=== PATIENT | male | born 1970 | race Caucasian/White ===

== ENCOUNTER 2024-02-26 16:11 | Observation (INO) | payer OTHER, SELFPAY ==
[2024-02-26] VITALS (21 sets, daily range): BP systolic 105–186; BP diastolic 61–124; BMI 24.6; BMI 24.4
[2024-02-26 13:39] LABS: % Basophils 0.7 % (0-2); % Eosinophils 1.6 % (0-6); % Immature Granulocytes 0.5 % (0-0.5); % Lymphocytes 6.5 % (20.5-51.1); % Monocytes 5.4 % (1.7-9.3); % Neutrophils 85.3 % (42.2-75.2); Absolute Basophils 0.1 10^3/uL (0-0.2); Absolute Eosinophils 0.3 10^3/uL (0-0.7); Absolute Immature Granulocytes 0.1 10^3/uL (0-0.05); Absolute Lymphocytes 1.2 10^3/uL (1.2-3.4); Absolute Neutrophils 15.6 10^3/uL (1.4-6.5); Hematocrit 48.9 % (39.0-52.0); Hemoglobin 16.4 g/dL (13.0-18.0); Mean Corp Hgb Conc. 33.5 g/dL (33.0-37.0); Mean Corpuscular Hgb 30.5 pg (27.0-31.0); Mean Corpuscular Volume 91.1 fL (80.0-94.0); Mean Platelet Volume 10.7 fL (7.4-10.4); Nucleated Red Blood Cells % 0 % (-); Platelet Count 296 10^3/uL (130-400); Red Blood Cell Count 5.37 10^6/uL (4.70-6.10); White Blood Cell Count 18.3 10^3/uL (4.8-10.8)
[2024-02-26] MEDS: MORPHINE SULFATE 4 MG IV (13:39)
[2024-02-26] MEDS: ZOFRAN 4 MG IV ×2 (13:54→17:21)
[2024-02-26 14:04] LABS: ALT (SGPT) 31 U/L (0-50); AST (SGOT) 32 U/L (17-59); Alkaline Phosphatase 121 U/L (38-126); Blood Urea Nitrogen 21 mg/dl (9-20); Calcium 10.3 mg/dl (8.4-10.2); Carbon Dioxide 26 mmol/L (22-30); Chloride 99 mmol/L (98-107); Estimated Creatinine Clearance 93 ml/min; Glucose 116 mg/dl (70-99); Potassium 4.8 mmol/L (3.5-5.1); Sodium 139 mmol/L (135-145); Total Bilirubin 1.3 mg/dl (0.2-1.3); Total Protein 8.1 g/dl (6.3-8.2); eGFR > 60.00
[2024-02-26 14:16] LABS: Troponin I < 0.012 ng/ml
[2024-02-26 14:19] LABS: Lipase 86 U/L (23-300)
[2024-02-26] MEDS: DILAUDID 0.5 MG IV (14:23)
--- NOTE | 2024-02-26 14:31 | ED.GENMED ---
History of Present Illness
General
Chief Complaint: Cardiac Symptoms
Source: patient and spouse
Exam Limitations: none
Time Seen by Provider: 02/26/24 13:20
Travel History
Have you had any contact with someone who has COVID-19?: No
Do you have any symptoms of coronavirus? Fever > 100 degrees, chills, cough, shortness of breath, sore throat, loss of taste or smell, muscle aches, or headache?: No
History of Present Illness
History of Present Illness:
53-year-old male in normal state of health till about 10 AM. Developed sudden onset of nausea vomiting. This was followed by left upper anterior chest pain around noon time which has been persistent. No radiation to the back. No shearing pain.
Associated with nausea and vomiting. Patient states this pain feels exactly like his previous DC type pain. Has a stent placed last year.
Past History
Past History
ED Past Medical History: CAD
ED Past Surgical History: Cardiac (Cardiac stent) and Orthopedic
Social History
Tobacco: Non-smoker
Alcohol: None
Drug: None
Personal:
Living: with family
Employment: Employed
Review of Systems
Review of Systems
All Other Systems: Not applicable
Constitutional: Denies fever
Respiratory: Reports no symptoms
ABD/GI: Denies abdominal pain
Phy Exam
Physical Exam
Physical Exam:
GENERAL: Alert. Very uncomfortable appearing. Slightly pale. Mildly diaphoretic at times. Clutching his left upper anterior chest at times. Mildly agitated
EYE: Orbits normal.
NECK: Supple
CARDIAC: Regular rate and rhythm without any obvious murmurs.
LUNGS: Clear breath sounds,normal
ABDOMEN: Soft, without focal tenderness or distention
NEUROLOGICAL: Alert and oriented , grossly non-focal
SKIN: Warm. Relatively dry but slight diaphoresis at times
MUSCULOSKELETAL: No edema,no deformity.Good color
PSYCH: Normal and appropriate interaction.
Course
Orders/Labs/Results
Orders:
Orders
02/26/24 13:13
ECG [Electrocardiogram (*1)] Urgent
Reason for Study: Chest Pain
EKG- Treatment ONCE
02/26/24 13:26
IV Insert/Care/Rem.- Treatment PRN
Pulse Ox/cont/shift [RESP] Stat
Quantity: 1
02/26/24 13:27
Cardiac Monitoring- Treatment ONCE
CR Chest Portable - 1 View Urgent
Comment:
Reason For Exam: cp
Reason Study Needs to be Portable: Unable to Transport
02/26/24 13:30
Complete Blood Count/With Diff Urgent
Comprehensive Metabolic Panel Urgent
Lipase Urgent
Troponin I Urgent
02/26/24 13:33
Morphine Sulfate 4 mg .ROUTE .STK-MED ONE
02/26/24 13:35
Morphine Sulfate 4 mg IV NOW STA
02/26/24 13:50
CT Chest/abd/pelvis Angio W/wo Urgent
Comment:
Reason For Exam: sudden severe chest pain
02/26/24 13:51
Ondansetron Injectable [Zofran] 4 mg .ROUTE .STK-MED ONE
02/26/24 13:54
Ondansetron Injectable [Zofran] 4 mg IV NOW STA
02/26/24 13:59
HYDROmorphone [Dilaudid] 0.5 mg .ROUTE .STK-MED ONE
02/26/24 14:00
HYDROmorphone [Dilaudid] 0.5 mg IV NOW STA
Abnormal Lab Results
02/26/24
13:30
WBC 18.3 H 10^3/uL
(4.8-10.8)
MPV 10.7 H fL
(7.4-10.4)
Abs Immat Gran (auto) 0.1 H 10^3/uL
(0-0.05)
Absolute Neuts (auto) 15.6 H 10^3/uL
(1.4-6.5)
Absolute Monos (auto) 1.0 H 10^3/uL
(0.1-0.6)
Neutrophils % 85.3 H %
(42.2-75.2)
Lymphocytes % 6.5 L %
(20.5-51.1)
BUN 21 H mg/dl
(9-20)
Glucose 116 H mg/dl
(70-99)
Calcium 10.3 H mg/dl
(8.4-10.2)
02/26/24 13:30
02/26/24 13:30
Vital Signs
Initial and Last Documented VS:
Initial Vital Signs
Temp Pulse Resp BP Pulse Ox
98.3 F 68 20 139/108 100
02/26/24 13:18 02/26/24 13:18 02/26/24 13:18 02/26/24 13:18 02/26/24 13:18
Last Documented Vital Signs
Temp Pulse Resp BP Pulse Ox
98.3 F 77 24 158/72 97
02/26/24 13:18 02/26/24 14:20 02/26/24 14:20 02/26/24 14:20 02/26/24 14:28
*Radiology
Radiology exam reviewed: preliminary read by ED provider (Negative x-ray) and radiology read reviewed (Negative CT angiography and x-ray)
*Pulse Oximetry
Patient hypoxic: no
*EKG
Interpretation: abnormal
Comparison EKG: changes noted
Heart Rate: 77
Rate: normal
Rhythm: sinus and PVC's
Marshall: normal axis
Interval: normal interval
QRS Pattern: normal QRS
Ischemia: non-specific ST changes
*Floral Associate Interpretation
Rate: normal
Interpretation: normal
Heart Rate: 50
Rhythm: sinus
*Critical Care Note
Total Time (30-74mins, 75-104mins- exclusive of procedures): 45
Update Note
Update Note:
Patient rechecked multiple times. Partial relief with narcotic pain management. Cardiology was called immediately for their input and evaluation. Repeat EKG in the ER was stable. Initial troponin negative. We did elect to do CT angiography with
the severity of symptoms. This was negative.
1450... Patient appears much improved at this time. Pain minimal. Family updated. Will admit for rule out and further observation and care
ED Attending Note
-
Portions of this chart may have been created with voice recognition software.� Occasional wrong word or��sound alike� substitutions may have occurred due to the inherent limitations of voice recognition software.
Discharge Plan
Departure
Patient Disposition: Admit
Date of Disposition: 02/26/24
Time of Disposition: 14:48
Presentation/result/management discussed w/ accepting MD/DO: cardiology
Discharge Problem:
Severe anterior chest pain, History of cardiac stent, Leukocytosis
Prescriptions:
No Action
temazepam 15 mg Capsule
15 mg PO HSPRN PRN (Reason: insomnia)
duloxetine 60 mg Capsule,Delayed Release(Dr/Ec)
60 mg PO DAILY
atorvastatin 40 mg Tablet
40 mg PO QPM Qty: 90 0RF
aspirin 81 mg Tablet,Chewable
81 mg PO DAILY Qty: 1 0RF
acetaminophen 325 mg Tablet
650 mg PO Q4HPRN PRN (Reason: mild pain) Qty: 1 0RF
Jardiance 10 mg tablet
10 mg PO DAILY Qty: 30 3RF
clopidogrel [Plavix] 75 mg Tablet
75 mg PO DAILY
lisinopril 5 mg tablet
10 mg PO DAILY
metoprolol succinate 25 mg tablet extended release 24 hr
12.5 mg PO DAILY
Referrals:
Juan Jose Pacheco, [Family Provider] -
Interventions
Interventions:
*Risk Screen - Suicide Last Done: 02/26/24 13:49
*General Assessment Last Done: 02/26/24 13:48
*Neglect/Abuse Screening Last Done: 02/26/24 13:49
*ED COVID-19 Vaccine History Last Done: 02/26/24 13:48
ED- Pulmonary Assessment Last Done: 02/26/24 14:28
ED- Cardiac Assessment Last Done: 02/26/24 13:49
Discharge Date and Time
Print Language: MONTENEGRIN
--- NOTE | 2024-02-26 15:04 | HPS.HSE ---
Family Physician
-
Family Physician: Juan Jose Pacheco
Chief Complaint
-
Chest Pain
History of Present Illness
Patient is a 53 y/o male with a past medical history of coronary artery disease, ST elevation myocardial infarction, ischemic cardiomyopathy, now resolved, hyperlipidemia, and anxiety who presents for diaphoresis, nausea, vomiting, and left-sided
chest pain since this morning. He states that he woke up around 7am and went to work as normal this morning. While driving home from work around 10am, he stopped to tow picker a sandwich and began to feel nauseous and diaphoretic. When he got home at
10:30am, he ate the whole sandwich and then began vomiting. He began experiencing a pressure in a crescent shape around his left nipple around noon while seated that he rates an 8/10. He states that this is the same presentation and type of pain
that he felt about 1 year ago when he had an ST elevation myocardial infarction. After arriving in the emergency department, he was given Dilaudid and his pain decreased to a 1-2/10. He is not in distress at this time. He denies shortness of breath,
dyspnea on exertion, and abdominal pain.
Medical History
Past Medical History
Past Medical History: Reports Other
Additional Past Medical History:
Coronary Artery Stent s/p Stent
Ischemic Cardiomyopathy - Resolved
Essential Hypertension
Dyslipidemia
Anxiety/Depression/Insomnia
Past Surgical History: Reports Other
Additional Past Surgical History:
Right Total Knee Replacement
Social History
Tobacco: Non-smoker
Alcohol: None
Family History
Family History: Not pertinent
Allergies / Home Medications
Allergies reflects when Allergies were last updated in [employer].
Home Medications with original date entered in [employer]
Allergy/Medication List:
Allergies
Allergy/AdvReac Type Severity Reaction Status Date / Time
No Known Allergies Allergy Unverified 02/26/24 13:17
Home Medications
duloxetine 60 mg capsule,delayed release 60 mg PO DAILY Mental Health/Anxiety 03/23/23
temazepam 15 mg capsule 15 mg PO HSPRN PRN insomnia 03/23/23
acetaminophen 325 mg tablet 650 mg (2 x 325 mg) PO Q4HPRN PRN mild pain #1 tab 03/26/23
aspirin 81 mg chewable tablet 81 mg PO DAILY #1 tab 03/26/23
atorvastatin 40 mg tablet 40 mg PO QPM #90 tabs 03/26/23
empagliflozin 10 mg tablet (Jardiance) 10 mg PO DAILY #30 tabs 03/26/23
clopidogrel 75 mg tablet (Plavix) 75 mg PO DAILY 02/26/24
lisinopril 5 mg tablet 10 mg PO DAILY 02/26/24
metoprolol succinate 25 mg tablet,extended release 24 hr 12.5 mg PO DAILY 02/26/24
Review of Systems
-
A 12 point ROS was completed and negative except as noted: Yes
Constitutional: Denies Fever or Chills
Respiratory: Denies Cough or Trouble Breathing
Cardiac: Denies Chest Pain or Palpitations
Abdomen/GI: Reports Nausea and Vomiting; Denies Abdominal Pain
Physical Exam
Vital Signs
Vital Signs
Temp Pulse Resp BP Pulse Ox
98.3 F 77 24 158/72 97
02/26/24 13:18 02/26/24 14:20 02/26/24 14:20 02/26/24 14:20 02/26/24 14:28
Physical Exam
General: Comfortable and Conversant
HEENT: Anicteric, Moist mucous membranes and Oxygen (Nasal Cannula)
Respiratory: Clear and Non Labored Respirations
Cardiac: S1/S2 and Regular Rhythm; No Murmur
GI: Soft, Non Tender and Non Distended
Rectal: Deferred by Provider
Musculoskeletal: No Clubbing, No Cyanosis and No Edema
Skin: Warm and Dry
Neuro: Awake, Alert and Oriented
Psych: Calm
Laboratory Results
-
02/26/24 13:30
02/26/24 13:30
Laboratory Results
Total Bilirubin 1.3 mg/dl (0.2-1.3) 02/26/24 13:30
AST 32 U/L (17-59) 02/26/24 13:30
ALT 31 U/L (0-50) 02/26/24 13:30
Alkaline Phosphatase 121 U/L (38-126) 02/26/24 13:30
Troponin I < 0.012 ng/ml 02/26/24 13:30
Lipase 86 U/L (23-300) 02/26/24 13:30
Data Reviewed
-
CT Scan: Report Reviewed by me
Lab Data: Labs Reviewed by me
Old Records: Reviewed
Impression/Plan
-
Chest Pain
-Appreciate Cardiology Consult
-Continue to trend troponin and serial ECGs
-Give dose of Maalox and start Pepcid tonight
Leukocytosis, unclear etiology, possibly reactive
-Continue to trend
Coronary Artery Stent s/p Stent
-Continue aspirin and Plavix
Ischemic Cardiomyopathy - Resolved
-Echo Aug 2023: EF 55-60% with improvement in previous wall motion abnormalities
-Continue Jardiance
Essential Hypertension
-Continue lisinopril and metoprolol
Dyslipidemia
-Continue atorvastatin
Anxiety/Depression/Insomnia
-Continue temazepam prn
DVT proph: SCDs
Code Status: Full Code
--- NOTE | 2024-02-26 15:15 | W.PN.UPDATE ---
Update Note
Progress Note Update
This update note serves as an addendum to H&P written by KWAME Sanchez
saw and examined the patient.
The FIRE FIGHTER's note was reviewed and I agree with the note.
Comment:
Mr. Edvin Silver is a 53 yo man with hx CAD (s/p PCI LAD 04/02, ICM with improved EF (TTE 09/02 with EF 55-60% with complete resolution prior WMA), presents to the ER with chest pain and nausea. Symptoms remind patient of prior [place] (03/2023).
EKG: sinus rhythm with frequent PVC's otherwise normal
Triage VS: T 98.3, P 68, RR 20, BP 139/108, SpO2 100%
LABS: WBC 18.3, Hg 16.4, PLT 296, Na 139, K+ 4.8, BUN 21, Cr 1.0, Glucose 116, T. Bili 1.3, AST 32, ALT 31, Alk Phos 121, Trop < 0.012, lipase 86
CXR
IMPRESSION:
1. Clear lungs.
2. No significant change compared to prior study.
CTA CHEST/ABDOMEN/PELVIS
IMPRESSION:
1. No evidence of aortic dissection, aortic aneurysm, or central pulmonary embolism.
2. Clear lungs.
3. Stent within the LAD, new compared to prior CT dated 03/23/2023.
4. No acute abnormality identified within the abdomen or pelvis.
MAR: dilaudid, morphine, zofran
Patient took his asa/plavix this morning. Differential includes ACS versus gastritis. CTA without e/o dissection, aneurysm or PE. Initial Troponin negative.
s/p dilaudid with improvement in pain
-admit patient to telemetry
-appreciate cardiology
-TTE now
-trend Troponins
-maalox PO x 1 now to see if helps symptoms
-continue [employer] asa/plavix/statin
-continue [employer] metop, Lisinopril, Jardiance
-start pepcid qhs
Anxiety
-PRODUCTION [employer] SCHEDULER Duloxetine
[2024-02-26] MEDS: MAALOX 30 ML PO (15:59)
[2024-02-26] MEDS: LIPITOR 40 MG PO (18:10)
[2024-02-26 18:43] LABS: Troponin I < 0.012 ng/ml
[2024-02-26] MEDS: PEPCID 20 MG PO (20:59)
[2024-02-27 00:44] LABS: Troponin I 0.013 ng/ml
[2024-02-27 03:28] VITALS: BP 114/62
[2024-02-27 06:00] VITALS: BMI 24.0
[2024-02-27 07:30] VITALS: BP 116/60
[2024-02-27 07:35] LABS: Hematocrit 45.9 % (39.0-52.0); Hemoglobin 15.1 g/dL (13.0-18.0); Mean Corp Hgb Conc. 32.9 g/dL (33.0-37.0); Mean Corpuscular Hgb 30.6 pg (27.0-31.0); Mean Corpuscular Volume 93.1 fL (80.0-94.0); Mean Platelet Volume 11.1 fL (7.4-10.4); Platelet Count 242 10^3/uL (130-400); Red Blood Cell Count 4.93 10^6/uL (4.70-6.10); White Blood Cell Count 13.5 10^3/uL (4.8-10.8)
[2024-02-27 07:49] LABS: Blood Urea Nitrogen 20 mg/dl (9-20); Calcium 9.7 mg/dl (8.4-10.2); Carbon Dioxide 26 mmol/L (22-30); Chloride 99 mmol/L (98-107); Estimated Creatinine Clearance 93 ml/min; Glucose 92 mg/dl (70-99); HDL Cholesterol 60 mg/dl; LDL Cholesterol, Calculated 32 mg/dl; Magnesium 2.2 mg/dl (1.6-2.3); Potassium 4.5 mmol/L (3.5-5.1); Sodium 135 mmol/L (135-145); Total Cholesterol 108 mg/dl (50-199); Triglyceride 84 mg/dl (10-149); Very Low Density Lipoprotein 16 mg/dl (0-30); eGFR > 60.00
--- NOTE | 2024-02-27 08:07 | W.PN.CD ---
Today's Communication / Plan
-
will stop plavix
call us back if needed
Impression / Plan
-
Chest/epigastric pain:
- now 11/20 in severity
- Troponins negative, ecg nonischemic- this is not myocardial ischemia. Telem SR with PVCs
- ECHO normal
- Will stop plavix now (11 of 12 month course has been completed)
- Continue ASA 81mg daily forever
Leukocytosis
- with left shift
- no radiolucent gallstones and no LFT abnormalities
IM to decide if further evaluation needed or perhaps a short course of outpt antibiotics
Will sign off . Call back prn
Physical Exam
Vital Signs/Labs
Vital Signs
Temp Pulse Resp BP Pulse Ox
98.1 F 56 18 114/62 97
02/27/24 03:28 02/27/24 03:28 02/27/24 03:28 02/27/24 03:28 02/27/24 03:28
02/26/24 02/27/24 02/28/24
06:59 06:59 06:59
Actual Weight 172 lb 5 oz
02/27/24 06:49
02/27/24 06:49
Magnesium 2.2 mg/dl (1.6-2.3) 02/27/24 06:49
Triglycerides 84 mg/dl (10-149) 02/27/24 06:49
LDL Cholesterol, Calc 32 mg/dl 02/27/24 06:49
VLDL Cholesterol, Calc 16 mg/dl (0-30) 02/27/24 06:49
HDL Cholesterol 60 mg/dl 02/27/24 06:49
LAB Results
02/26/24 02/26/24 02/27/24
13:30 17:47 00:00
Troponin I < 0.012 < 0.012 0.013
Physical Exam
Constitutional: No acute distress and Comfortable
Cardiovascular: Rhythm & rate is regular, S1S2 is normal and Murmur/rub/gallop absent
Respiratory: Respiratory effort normal, Lungs clear to auscul., Wheeze Absent and Crackles Absent
GI: Soft, Distention absent, Flat and Non tender
Neuro/Psych: AO x 3 and Motor deficits absent
Data Reviewed
-
Date of Service: February 27, 2024
[2024-02-27 08:37] LABS: Glycohemoglobin (HgbA1c) 5.9 % (4.0-5.6)
[2024-02-27] MEDS: TOPROL XL 12.5 MG PO (09:10)
[2024-02-27] MEDS: ZESTRIL 10 MG PO (09:11)
[2024-02-27] MEDS: LOW STRENGTH ASPIRIN 81 MG PO (09:11)
[2024-02-27] MEDS: CYMBALTA DELAYED RELEASE 60 MG PO (09:11)
[2024-02-27] MEDS: JARDIANCE 10 MG PO (09:11)
--- NOTE | 2024-02-27 11:45 | W.PN.HOSP.TC ---
Today's Communication/Plan
-
OK for DC today
Assessment / Plan
Assessment / Plan
Mr. Edvin Silver is a 53 yo man with hx CAD (s/p PCI LAD 04/02, ICM with improved EF (TTE 09/02 with EF 55-60% with complete resolution prior WMA), presents to the ER with chest pain and nausea. Symptoms remind patient of prior [place] (03/2023).
CXR
IMPRESSION:
1. Clear lungs.
2. No significant change compared to prior study.
CTA CHEST/ABDOMEN/PELVIS
IMPRESSION:
1. No evidence of aortic dissection, aortic aneurysm, or central pulmonary embolism.
2. Clear lungs.
3. Stent within the LAD, new compared to prior CT dated 03/23/2023.
4. No acute abnormality identified within the abdomen or pelvis.
Chest pain
-TTE without WML; Troponin negative x 3; EKG without ischemic changes
-appreciate cardiology - this is not ACS
-sx attributable to gastritis - patient reports eating left over clams prior to onset
-educated can take maalox/tums PRN at home and follow up closely with PCP
CAD
-continue [employer] asa/statin; ok to stop plavix per cardiology
-continue [employer] metop, Lisinopril, Jardiance
Anxiety
-[employer] Duloxetine
Anticipated Discharge: Today
Subjective/Interval History
-
Date of Service: February 27, 2024
feeling well
wants to go home
feels sx more likely indigestion - ate left over clams from night prior before sx set in
Objective Data
-
Labs:
Laboratory Results
02/27/24
06:49
WBC 13.5 H
Hgb 15.1
Hct 45.9
Plt Count 242
Sodium 135
Potassium 4.5
Chloride 99
Carbon Dioxide 26
BUN 20
Creatinine 1.0
Glucose 92
Calcium 9.7
Vital Signs:
Vital Signs
Temp Pulse Resp BP Pulse Ox
98.1 F 60 24 116/60 97
02/27/24 07:30 02/27/24 09:10 02/27/24 07:30 02/27/24 07:30 02/27/24 07:30
Review of Systems
-
History Source: Patient
All other systems: Reviewed and negative
Physical Exam
-
General: No Apparent Distress
HEENT: Normocephalic, Atraumatic and Moist Mucous Membranes
Respiratory: Clear to Auscultation
Cardiac: Regular Rhythm and S1/S2; Negative Murmur, Rub or Gallop
GI: Soft, Nontender, Nondistended and Normal Bowel Sounds; Negative Organomegaly
Rectal: Deferred by Provider
Musculoskeletal: No Clubbing, No Cyanosis and No Edema
Skin: Negative Rash
Neuro: Nonfocal/Grossly Intact
Data Reviewed
-
Diagnostic Radiology: Report Reviewed by me
Labs: Labs Reviewed by me
--- NOTE | 2024-02-27 11:54 | W.DS.TRANS ---
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
-
Discharge Instructions:
Discharge Diagnosis/Procedures chest pain likely secondary to gastritis/
indigestion
Diet Low Cholesterol
Activity As tolerated
Driving Restrictions As prior to admission
Bathing Restrictions None
Instructions:
Stand-Alone Forms:
Changes to Home Medications: Yes
Discharge Medications:
DC Medications w/original date entered in [employer]
duloxetine 60 mg capsule,delayed release 60 mg PO DAILY Mental Health/Anxiety 03/23/23
temazepam 15 mg capsule 15 mg PO HSPRN PRN insomnia 03/23/23
acetaminophen 325 mg tablet 650 mg (2 x 325 mg) PO Q4HPRN PRN mild pain #1 tab 03/26/23
aspirin 81 mg chewable tablet 81 mg PO DAILY #1 tab 03/26/23
empagliflozin 10 mg tablet (Jardiance) 10 mg PO DAILY #30 tabs 03/26/23
atorvastatin 40 mg tablet 40 mg PO DAILY 02/26/24
lisinopril 5 mg tablet 10 mg PO DAILY 02/26/24
metoprolol succinate 25 mg tablet,extended release 24 hr 12.5 mg PO DAILY 02/26/24
Home Medication Changes
Ok to stop Plavix
Pending Results: No
[2024-02-27 11:57] VITALS: BP 132/80
--- NOTE | 2024-02-27 12:50 | CM ---
Met with patient and his at bedside; initial assessment completed
Pharmacy verified: [facility], [facility]
Patient lives with his spouse in multilevel home; 0 steps to enter; 10 steps between floors; railings present on stairs; powder room on the 1st floor; 2nd floor bath has walk-in shower with seat
PLOF: reported he is independent with ambulation, stairs, and ADLs; drives
DME: none
SNF/Rehab/Home Health utilization history: none
Transportation: will provide ride home
Plan: discharge to home today without services
--- NOTE | 2024-02-27 14:55 | W.DCSUMMARY ---
Discharge Summary
Discharge Data
Date of Admission: 02/26/24
Date of Discharge: 02/27/24
-
Pending Results: No
Hospital Course
Discharging Physician : Dr. Birgit Maravilla
Disposition : Home
Primary care physician : Dr. Juan Jose Pacheco
Principal Discharge diagnosis : Chest pain secondary to gastritis/indigestion
Hospital Course :
Mr. Edvin Silver is a 53 yo man with hx CAD (s/p PCI LAD 04/02, ICM with improved EF (TTE 09/02 with EF 55-60% with complete resolution prior WMA), presents to the ER with chest pain and nausea. Symptoms remind patient of prior [place] (03/2023) and so
he came to the ER. Triage vitals stable. Labs with WBC 18.3, Cr 1.0, Trop < 0.012. EKG with sinus rhythm and PVC's. He was admitted to medicine with cardiology consulting. TTE performed without finding of change from prior 09/02. Troponins
trended overnight and were negative. He was given maalox with some improvement in symptoms. Etiology likely gastritis/indigestion from earlier meal which consisted of left over clams. He is told to take maalox or Tums PRN at home and follow up
with PCP with daily treatment/work-up if persists.
Leukocytosis improved to 13 day of discharge without initiation of antibiotics.
Time spent on discharge was 31 minutes.
Important imaging findings :
CXR
IMPRESSION:
1. Clear lungs.
2. No significant change compared to prior study.
CTA CHEST/ABDOMEN/PELVIS
IMPRESSION:
1. No evidence of aortic dissection, aortic aneurysm, or central pulmonary embolism.
2. Clear lungs.
3. Stent within the LAD, new compared to prior CT dated 03/23/2023.
4. No acute abnormality identified within the abdomen or pelvis.
TTE 02/26/24
CONCLUSIONS
Normal left ventricular size, wall thickness and systolic function. LV ejection
fraction is 55-60%.
No regional wall motion abnormalities are seen.
No significant valvular disease.
No significant change since the prior study of Aug 2023.
Procedure findings :
Discharge Plan
-
Patient Disposition: Home (Routine Discharge)
Discharge Diagnosis/Procedures: chest pain likely secondary to gastritis/indigestion
Diet: Low Cholesterol
Activity: As tolerated
Driving Restrictions: As prior to admission
Bathing Restrictions: None
Instructions: Chest Pain
Referrals:
Juan Jose Pacheco, DO [Family Provider] - in less than 1 week
Additional Discharge Medication Instructions: OK to stop Plavix
Take Maalox or Tums for indigestion as needed over the next couple of days. If indigestion persists discuss with your PCP about starting a daily medication.
Prescriptions:
Continued
temazepam 15 mg Capsule
15 mg PO HSPRN PRN (Reason: insomnia)
duloxetine 60 mg Capsule,Delayed Release(Dr/Ec)
60 mg PO DAILY
aspirin 81 mg Tablet,Chewable
81 mg PO DAILY Qty: 1 0RF
acetaminophen 325 mg Tablet
650 mg PO Q4HPRN PRN (Reason: mild pain) Qty: 1 0RF
Jardiance 10 mg tablet
10 mg PO DAILY Qty: 30 3RF
lisinopril 5 mg tablet
10 mg PO DAILY
metoprolol succinate 25 mg tablet extended release 24 hr
12.5 mg PO DAILY
atorvastatin 40 mg Tablet
40 mg PO DAILY
Discontinued
clopidogrel [Plavix] 75 mg Tablet
75 mg PO DAILY
Discharge Orders:
Discharge Patient (As Directed); Ordered 02/27/24
Ordered By: Birgit Maravilla
Discharge Date and Time
Discharge Date/Time: 02/27/24 14:37
Print Language: SINHALA
== END 2024-02-27 14:37 | disposition home or self-care (01) ==
LOC: 4 WEST ACU 16:11
PROVIDERS: Physician Assistant Medical; ADMITTING PHYSICIAN Student in an Organized Health Care Education/Training Program; CONSULT PHYSICIAN Internal Medicine Cardiovascular Disease; EMERGENCY PHYSICIAN Emergency Medicine; FAMILY PHYSICIAN Family Medicine
DX: R07.89 Other chest pain (principal); R11.2 Nausea with vomiting, unspecified; I25.10 Atherosclerotic heart disease of native coronary artery without angina pectoris; D72.829 Elevated white blood cell count, unspecified; I10 Essential (primary) hypertension; E78.5 Hyperlipidemia, unspecified; F41.9 Anxiety disorder, unspecified; I25.5 Ischemic cardiomyopathy; F32.A Depression, unspecified; G47.00 Insomnia, unspecified; I25.2 Old myocardial infarction; Z79.82 Long term (current) use of aspirin; Z79.84 Long term (current) use of oral hypoglycemic drugs; Z79.02 Long term (current) use of antithrombotics/antiplatelets; Z95.5 Presence of coronary angioplasty implant and graft; Z96.651 Presence of right artificial knee joint
CPT/HCPCS: 71045; 71275; 74174; 80048; 80053; 80061; 83036; 83690; 83735; 84484; 85025; 85027; 93005; 93306; 96374; 96375; 99291; G0378; Q9967

== ENCOUNTER 2025-03-18 11:35 | Emergency (ER) | payer OTHER, SELFPAY ==
[2025-03-18] VITALS (12 sets, daily range): BP systolic 137–184; BP diastolic 66–129
[2025-03-18] MEDS: DILAUDID 1 MG IV (11:55)
[2025-03-18] MEDS: ZOFRAN 4 MG IV (11:55)
[2025-03-18] MEDS: NSS 1000 IV (11:56)
--- NOTE | 2025-03-18 11:57 | ED.GENMED ---
History of Present Illness
<Kimberley Camacho PA-C - Last Filed: 03/18/25 17:31>
General
Chief Complaint: Chest Pain
Source: patient, records and family
Exam Limitations: none
Time Seen by Provider: 03/18/25 11:42
History of Present Illness
History of Present Illness:
54yoM with a history of coronary artery disease s/p PCI presenting for evaluation of chest pain. Patient was fasting for blood work this morning. He started to vomit around 8am and has been vomiting continuously since then. He then developed
sharp central chest pain about 45 minutes prior to arrival. Pain is severe and is non-radiating. He reports having similar symptoms when he had his heart attack in the past. He is writhing around in pain and diaphoretic in triage and brought
immediately to an exam room for evaluation. Chart reviewed and patient had a similar presentation in January 2024 which was attributed to gastritis/indigestion. He smokes marijuana daily. Of note, patient stopped taking his statin about 6 months.
His city treasurer is Dr. Correa.
Past History
<Kimberley Camacho PA-C - Last Filed: 03/18/25 17:31>
Past History
ED Past Medical History: CAD
ED Past Surgical History: Cardiac (Cardiac stent) and Orthopedic
Social History
Tobacco: Non-smoker
Alcohol: None
Drug: None
Personal:
Living: with family
Employment: Employed
Phy Exam
<Kimberley Camacho PA-C - Last Filed: 03/18/25 17:31>
Physical Exam
Physical Exam:
Writhing around on stretcher, screaming, agitated
General Physical Exam
General Presentation: moderate distress
General Skin: warm and diaphoretic
General Mental: anxious
ENT Exam
ENT Exam: normocephalic
Cardiovascular Exam
Cardiovascular Exam: regular rate/rhythm, no edema, no murmur and normal peripheral pulses (2+ DP pulses bilaterally)
Pulmonary Exam
Pulmonary Exam: lungs clear, no respiratory distress, no rales, no crackles, no rhonchi and no wheezing
Neurological Exam
Neurological Exam: alert
[place] Coma Scale
Eye Opening: Spontaneous
Verbal Response: Oriented
Motor Response: Obeys Commands
GCS Total Score: 15
Skin Exam
Skin Exam: normal color and diaphoresis
Psychiatric Exam
Psychiatric Exam: anxious
<Boo Mcmahan MD - Last Filed: 03/18/25 14:09>
[place] Coma Scale
GCS Total Score: 15
Scores
<Kimberley Camacho PA-C - Last Filed: 03/18/25 17:31>
Heart Score for Chest Pain Patients
STEMI patient?: No
History: Moderately Suspicious
ECG: Normal
Age: >45 - <65 years
Risk Factors: >/= 3 Risk Factors or History of CAD
Troponin: </= Normal Limit
Heart Score for Chest Pain Patients: 4
Heart Score Risk: 20.3% MACE over next 6 weeks
Course
<Kimberley Camacho PA-C - Last Filed: 03/18/25 17:31>
Orders/Labs/Results
Orders:
Orders
03/18/25 11:36
EKG [Electrocardiogram (*1)] Urgent
Reason for Study: Chest Pain
EKG- Treatment ONCE
03/18/25 11:46
CT Chest/abd/pelvis Angio W/wo Urgent
Comment:
Reason For Exam: Severe chest pain, vomiting
Cardiac Monitoring- Treatment ONCE
Morphine Sulfate 4 mg IV NOW STA
Ondansetron Injectable [Zofran] 4 mg IV NOW STA
CXR Port [CR Chest Portable - 1 View] Stat
Comment:
Reason For Exam: CP
Reason Study Needs to be Portable: Patient Unstable
03/18/25 11:49
0.9% Sodium Chloride 1000 ml [Nss] 1,000 ml IV BOLUS
03/18/25 11:50
HYDROmorphone [Dilaudid] 1 mg IV NOW STA
03/18/25 11:55
Complete Blood Count/With Diff Urgent
Comprehensive Metabolic Panel Urgent
Lipase Urgent
Magnesium Urgent
PTT Urgent
Prothrombin Time Urgent
Troponin I Urgent
Lorazepam [Ativan] 1 mg IV NOW STA
03/18/25 13:00
EKG- Treatment ONCE
03/18/25 15:00
Electrocardiogram (*1) Urgent
Reason for Study: Chest Pain
03/18/25 15:01
Troponin I Urgent
Abnormal Lab Results
03/18/25
11:55
WBC 12.7 H 10^3/uL
(4.8-10.8)
RBC 4.58 L 10^6/uL
(4.70-6.10)
MPV 11.0 H fL
(7.4-10.4)
Absolute Neuts (auto) 10.8 H 10^3/uL
(1.4-6.5)
Absolute Lymphs (auto) 1.1 L 10^3/uL
(1.2-3.4)
Neutrophils % 84.7 H %
(42.2-75.2)
Lymphocytes % 8.6 L %
(20.5-51.1)
Chloride 108 H mmol/L
(98-107)
Glucose 126 H mg/dl
(70-99)
03/18/25 11:55
03/18/25 11:55
Vital Signs
Initial and Last Documented VS:
Initial Vital Signs
Pulse Resp Pulse Ox
87 30 100
03/18/25 11:41 03/18/25 11:41 03/18/25 11:41
Last Documented Vital Signs
Temp Pulse Resp BP Pulse Ox
98.5 F 62 13 137/74 99
03/18/25 11:51 03/18/25 16:00 03/18/25 16:00 03/18/25 14:00 03/18/25 14:45
<Boo Mcmahan MD - Last Filed: 03/18/25 14:09>
Orders/Labs/Results
Orders:
Orders
03/18/25 11:36
EKG [Electrocardiogram (*1)] Urgent
Reason for Study: Chest Pain
EKG- Treatment ONCE
03/18/25 11:46
CT Chest/abd/pelvis Angio W/wo Urgent
Comment:
Reason For Exam: Severe chest pain, vomiting
Cardiac Monitoring- Treatment ONCE
Morphine Sulfate 4 mg IV NOW STA
Ondansetron Injectable [Zofran] 4 mg IV NOW STA
CXR Port [CR Chest Portable - 1 View] Stat
Comment:
Reason For Exam: CP
Reason Study Needs to be Portable: Patient Unstable
03/18/25 11:49
0.9% Sodium Chloride 1000 ml [Nss] 1,000 ml IV BOLUS
03/18/25 11:50
HYDROmorphone [Dilaudid] 1 mg IV NOW STA
03/18/25 11:55
Complete Blood Count/With Diff Urgent
Comprehensive Metabolic Panel Urgent
Lipase Urgent
Magnesium Urgent
PTT Urgent
Prothrombin Time Urgent
Troponin I Urgent
Lorazepam [Ativan] 1 mg IV NOW STA
03/18/25 13:00
EKG- Treatment ONCE
03/18/25 15:00
Electrocardiogram (*1) Urgent
Reason for Study: Chest Pain
03/18/25 15:01
Troponin I Urgent
Abnormal Lab Results
03/18/25
11:55
WBC 12.7 H 10^3/uL
(4.8-10.8)
RBC 4.58 L 10^6/uL
(4.70-6.10)
MPV 11.0 H fL
(7.4-10.4)
Absolute Neuts (auto) 10.8 H 10^3/uL
(1.4-6.5)
Absolute Lymphs (auto) 1.1 L 10^3/uL
(1.2-3.4)
Neutrophils % 84.7 H %
(42.2-75.2)
Lymphocytes % 8.6 L %
(20.5-51.1)
Chloride 108 H mmol/L
(98-107)
Glucose 126 H mg/dl
(70-99)
03/18/25 11:55
03/18/25 11:55
Vital Signs
Initial and Last Documented VS:
Initial Vital Signs
Pulse Resp Pulse Ox
87 30 100
03/18/25 11:41 03/18/25 11:41 03/18/25 11:41
Last Documented Vital Signs
Temp Pulse Resp BP Pulse Ox
98.5 F 62 13 137/74 99
03/18/25 11:51 03/18/25 16:00 03/18/25 16:00 03/18/25 14:00 03/18/25 14:45
<Kimberley Camacho PA-C - Last Filed: 03/18/25 17:31>
MDM/Problems Addressed
Differential Diagnosis Includes:
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 Preceded by several hours of vomiting. Hx of CAD. He is mildly hypertensive with otherwise stable vitals. He is writhing around in pain on initial exam and agitated. Differential diagnosis
includes but is not limited to: ACS, aortic dissection, Boerhaave's syndrome, cannabinoid hyperemesis, esophagitis
Initial ED plan: EKG in triage shows NSR without ischemic changes. Check cardiac labs, lipase, portable CXR, and CTA dissection study. IV Zofran, Dilaudid, Ativan, and fluid bolus for symptoms.
<Kimberley Camacho PA-C - Last Filed: 03/18/25 17:31>
*EKG
Interpreted by ED Provider?: Yes
EKG Intrepretation Date: 03/18/25
Heart Rate: 80
Rate: normal
Rhythm: sinus
[place]: normal axis
Interval: normal interval
QRS Pattern: normal QRS
Ischemia: no ischemia
*Critical Care Note
Total Time (30-74mins, 75-104mins- exclusive of procedures): Not Applicable
<Kimberley Camacho PA-C - Last Filed: 03/18/25 17:31>
Update Note
Update Note:
Labs reveal a mild leukocytosis with a white count of 12.7 which is likely reactive secondary to vomiting. Troponin within normal limits. CT is negative for dissection or other acute findings. Repeat troponin/EKG performed at 3 hours which are
unchanged. He was reassessed multiple times and symptoms completely resolved after initial medications. No indication for hospitalization and patient is quite eager to be discharged. Suspect chest pain is related to retching/esophagitis. I also
discussed possibility of cannabinoid hyperemesis with patient. He was advised to f/u with PCP and city treasurer. ED return precautions reviewed. Patient discharged in stable condition.
ED Attending Note
<Kimberley Camacho PA-C - Last Filed: 03/18/25 17:31>
-
Portions of this chart may have been created with voice recognition software.� Occasional wrong word or��sound alike� substitutions may have occurred due to the inherent limitations of voice recognition software.
<Boo Mcmahan MD - Last Filed: 03/18/25 14:09>
ED Attending Note
Patient seen and examined by attending physician: Yes
ED Attending Note:
I have seen and evaluated the patient with a [id number] encounter. I have spoken to the advance practicer provider and involved in the medical history, the physical exam, medical decision making.
Evaluation and management service: agree unless noted differently below.
Results interpretation: agree unless noted differently below.
Focused HPI: 54-year-old male with history as documented presents for evaluation of nausea and vomiting with chest pain. Patient reports that he woke up this morning with intense nausea and vomiting�he says he had been fasting for follow-up blood
work to be done as an outpatient and this morning woke up nauseated and was vomiting all morning. Around 11 AM he started having some burning chest pain in the setting of vomiting. No shortness of breath. No abdominal pain. No diarrhea. No
swelling or pain in the legs. Had similar presentation about a year ago and it was felt that he had symptoms related to gastritis/GERD.
Physical exam: Patient appears very uncomfortable retching and moaning. Hypertensive and mild tachypnea but otherwise normal vitals. No cardiac rubs gallops or murmurs appreciated. Lungs sound clear. Abdomen nontender. No crepitus in the chest
wall. No edema in the legs. Pulses symmetric throughout.
Medical Decision Makin-year-old male presents for evaluation of chest pain in the setting of vomiting. Vitals and exam as above. His EKG shows no STEMI. IV placed labs sent off including a CBC and a CMP, troponin. He appears quite
uncomfortable and is hypertensive will send for a CT to rule out dissection. This will also help to evaluate for any signs of esophageal rupture. Treat symptomatically. He does admit to daily marijuana use this could be hyperemesis syndrome as
well. Will reassess after the above.
Initial troponin negative. CBC shows marginal leukocytosis, CMP no clinically significant abnormalities. Stat chest x-ray showed no acute abnormalities on my review. CT pending.
CT reviewed by me no clear dissection or esophageal rupture appreciated�report pending.Repeat troponin pending. Patient has been comfortable since initial treatment. Continue to monitor. If workup negative and he remains comfortable can likely be
discharged with treatment for gastroesophagitis and consideration of marijuana cessation. If symptoms return he may require admission for symptom control.
Discharge Plan
Departure
Patient Disposition: Home (Routine Discharge)
Date of Disposition: 03/18/25
Time of Disposition: 16:12
Patient with high blood pressure during this ER visit?: Yes
Discharge Problem:
Chest pain, Nausea and vomiting
Instructions: Chest pain - Discharge instructions
Prescriptions:
No Action
temazepam 15 mg Capsule
15 mg PO HSPRN PRN (Reason: insomnia)
duloxetine 60 mg Capsule,Delayed Release(Dr/Ec)
60 mg PO DAILY
aspirin 81 mg Tablet,Chewable
81 mg PO DAILY Qty: 1 0RF
acetaminophen 325 mg Tablet
650 mg PO Q4HPRN PRN (Reason: mild pain) Qty: 1 0RF
Jardiance 10 mg tablet
10 mg PO DAILY Qty: 30 3RF
lisinopril 5 mg tablet
10 mg PO DAILY
metoprolol succinate 25 mg tablet extended release 24 hr
12.5 mg PO DAILY
atorvastatin 40 mg Tablet
40 mg PO DAILY
Referrals:
Juan Jose Pacheco DO [Family Provider] -
Activity Restrictions/Additional Instructions:
Please follow-up with your family doctor and city treasurer. You should restart your statin.
Return to the ER with any new or worsening symptoms.
Interventions
Interventions:
*Risk Screen - Suicide Last Done: 03/18/25 11:41
*General Assessment Last Done: 03/18/25 12:13
*Neglect/Abuse Screening Last Done: 03/18/25 11:41
*ED- Fall Risk Assessment Last Done: 03/18/25 12:13
*ED COVID-19 Vaccine History Last Done: 03/18/25 11:41
*Nursing Disposition Last Done: 03/18/25 16:23
ED- Cardiac Assessment Last Done: 03/18/25 12:12
Discharge Date and Time
Discharge Date/Time: 03/18/25 16:23
Print Language: [id number]
[2025-03-18] MEDS: ATIVAN 1 MG IV (12:00)
[2025-03-18 12:09] LABS: % Basophils 0.9 % (0-2); % Eosinophils 1.3 % (0-6); % Immature Granulocytes 0.3 % (0-0.5); % Lymphocytes 8.6 % (20.5-51.1); % Monocytes 4.2 % (1.7-9.3); % Neutrophils 84.7 % (42.2-75.2); Absolute Basophils 0.1 10^3/uL (0-0.2); Absolute Eosinophils 0.2 10^3/uL (0-0.7); Absolute Lymphocytes 1.1 10^3/uL (1.2-3.4); Absolute Monocytes 0.5 10^3/uL (0.1-0.6); Absolute Neutrophils 10.8 10^3/uL (1.4-6.5); Hematocrit 41.8 % (39.0-52.0); Mean Corp Hgb Conc. 33.5 g/dL (33.0-37.0); Mean Corpuscular Hgb 30.6 pg (27.0-31.0); Mean Corpuscular Volume 91.3 fL (80.0-94.0); Nucleated Red Blood Cells % 0 % (-); Platelet Count 348 10^3/uL (130-400); Red Blood Cell Count 4.58 10^6/uL (4.70-6.10); Red Cell Dist. Width 12.2 % (11.5-14.5); White Blood Cell Count 12.7 10^3/uL (4.8-10.8)
[2025-03-18 12:16] LABS: INR 0.96; PT 13.2 Sec (11.4-14.6)
[2025-03-18 12:17] LABS: APTT 26.9 Sec (23.4-35.0)
[2025-03-18 12:23] LABS: ALT (SGPT) 28 U/L (0-50); AST (SGOT) 29 U/L (17-59); Albumin 4.3 g/dl (3.5-5.0); Alkaline Phosphatase 96 U/L (38-126); Blood Urea Nitrogen 18 mg/dl (9-20); Carbon Dioxide 24 mmol/L (22-30); Chloride 108 mmol/L (98-107); Glucose 126 mg/dl (70-99); Lipase 126 U/L (23-300); Magnesium 1.8 mg/dl (1.6-2.3); Potassium 4.6 mmol/L (3.5-5.1); Sodium 143 mmol/L (135-145); Total Bilirubin 0.8 mg/dl (0.2-1.3); Total Protein 7.4 g/dl (6.3-8.2); eGFR > 60.00
[2025-03-18 12:33] LABS: Troponin I < 0.012 ng/ml
[2025-03-18 15:54] LABS: Troponin I < 0.012 ng/ml
== END 2025-03-18 16:23 | disposition home or self-care (01) ==
LOC: EMR 11:35
PROVIDERS: Physician Assistant; EMERGENCY PHYSICIAN Emergency Medicine; FAMILY PHYSICIAN Family Medicine
DX: R07.89 Other chest pain (principal); R11.2 Nausea with vomiting, unspecified; F12.90 Cannabis use, unspecified, uncomplicated; I25.10 Atherosclerotic heart disease of native coronary artery without angina pectoris; Z95.5 Presence of coronary angioplasty implant and graft
CPT/HCPCS: 99285; 96374; 96375; 96361; 71045; 71275; 74174; 80053; 83690; 83735; 84484; 85025; 85610; 85730; 93005; Q9967

== ENCOUNTER → 2025-03-24 10:27 | Outpatient (REF) | payer OTHER, SELFPAY | LOC: RAD 10:27 | PROVIDERS: ATTENDING PHYSICIAN Family Medicine | DX: M25.562 Pain in left knee (principal) | CPT/HCPCS: 73560 ==